=== PATIENT | female | born 1945 | race Caucasian/White ===

== ENCOUNTER → 2017-01-09 | Day surgery (SDC) | payer OTHER ==
[~2017-01-09] MED LIST: ASPIRIN81 M2 PO; CALCIUM + D 6001 TA1 PO; EVISTA60 M1 PO; LIPITOR40 MG PO; MAGNESIUM500 MG PO; OCUTABS TABLET1 TAB PO; OMEPRAZOLE20 M2 PO; OMEPRAZOLE40 M1 PO; PEPTO-BISM525 MG/15 PO; SUPER B-50 COMP1 CAP PO; TUMS DUAL ACTI1 EACH PO
--- NOTE | ~2017-01-09 | OR ---
Unit #: [id number] #: [id number] Patient: HUY RUTH [id number] [address] [place], [place] [address] [id number] MR#: [id number] NAME: HUY RUTH ROOM: Date of Procedure: 01/09/2017 Admission Date: 01/09/2017 Surgeon: Jasiel Villaseñor M.D. : 1945 Attending Physician: Jasiel Villaseñor M.D. Referring Physician: Jasiel Villaseñor M.D. Primary Care Physician: Jeremy Child M.D. OPERATIVE REPORT PREOPERATIVE DIAGNOSES Dysphagia and dyspepsia. PROCEDURES PERFORMED Upper gastrointestinal endoscopy and biopsy as well as upper gastrointestinal endoscopy and TTS balloon dilation of esophageal stricture. POSTOPERATIVE DIAGNOSES 1. Moderate prepyloric antral erosive gastritis. 2. Tight distal esophageal stricture. This was dilated using an 18 to 20 mm TTS balloon. 3. Small hiatus hernia. 4. Rest of the examination up to third part of duodenum was normal. Biopsies obtained from the antrum for CLOtest. RECOMMENDATIONS The patient is advised to use omeprazole 40 mg p.o. daily instead of 20 mg p.o. daily. The patient will be followed up in the office in 3 months' time. In addition, the patient was advised to chew her food really well and eat slow. SEDATION USED MAC. DESCRIPTION OF PROCEDURE Following detailed explanations of potential risks and complications of an upper endoscopy, namely perforation, bleeding, and complications related to sedation, the patient was brought to GI lab and laid in the left lateral decubitus position. Lubricated tip of the Olympus video upper endoscope was passed through bite block into the proximal esophagus under direct vision. The entire esophageal mucosa was examined. The patient was noted to have a tight distal esophageal stricture. The inner diameter of the stricture was about 14 to 15 mm. In addition, there was associated esophagitis. The scope was advanced, past the small hiatus hernia into the stomach. Mucosa of the fundus, body, and antrum was examined. Diffuse prepyloric antral erosive gastritis noted including multiple superficial hemorrhagic erosions in the antral area. Pylorus was intubated with visualization of the normal duodenal bulb and second and third part of the duodenum. Upon withdrawal and retroflexion, incisura, cardia, and greater curve examined and biopsy obtained from the antrum for CLOtest. The scope was then withdrawn in the distal esophagus. An 18 to Unit #: [id number] #: [id number] Patient: HUY RUTH 20 mm TTS balloon was passed through the accessory channel of the scope and step-up dilation of distal esophageal stricture was done. Minimal bleeding was noted after effective dilation. The area was thoroughly washed with water and good hemostasis was achieved. The scope was then withdrawn. The patient returned to recovery area. The patient tolerated the procedure without any postprocedure complications. Dictated by... Maria E Saul/cherelle TD: 01/10/2017 02:10 JOB #: [id number] OPERATIVE REPORT X Jasiel Villaseñor MD X PROCEDURE OPERATIVE NOTE
== END | disposition home or self-care (01) ==
LOC: COPS 09:59
DX: K29.01 Acute gastritis with bleeding (principal); K22.2 Esophageal obstruction; K20.9 Esophagitis, unspecified; K44.9 Diaphragmatic hernia without obstruction or gangrene; E78.5 Hyperlipidemia, unspecified; K21.9 Gastro-esophageal reflux disease without esophagitis; Z79.82 Long term (current) use of aspirin; Z79.899 Other long term (current) drug therapy; Z98.890 Other specified postprocedural states
CPT/HCPCS: 87077